=== PATIENT | male | born 1960 | race Caucasian/White ===

== ENCOUNTER 2024-06-16 08:50 | Emergency (ER) | payer BC ==
[~2024-06-16] VITALS: Ht 167.6 cm; Wt 99.8 kg
[2024-06-16] MEDS ORDERED: ATOR40TA PO (09:04)
[2024-06-16] MEDS ORDERED: BUPR-96 PO (09:04)
[2024-06-16] MEDS ORDERED: ALLO100T PO (09:04)
[2024-06-16] MEDS ORDERED: ALFU10TA10 PO (09:04)
[2024-06-16 10:00] LABS: *BILIRUBIN,URIN 2+ (NEGATIVE); *BLOOD, URINE NEGATIVE (NEGATIVE); *CLARITY,URINE CLEAR (CLEAR); *COLOR,URINE YELLOW (YELLOW); *KETONES,URINE TRACE (NEGATIVE); *PROTEIN,URINE 1+ (NEGATIVE); LEUKOCYTE ESTERASE ,URINE NEGATIVE (NEGATIVE); NITRITE, URINE NEGATIVE (NEGATIVE); PH,URINE 5.5 (5.0-8.0); UGLUCOSE NEGATIVE (NEGATIVE)
[2024-06-16 10:09] LABS: CALCIUM 8.9 mg/dL (8.5-10.1); CARBON DIOXIDE 25 mmol/L (21-32); CHLORIDE 102 mmol/L (98-107); CREATININE 1.7 mg/dL (0.6-1.3); GLUCOSE 129 mg/dL (74-106); POTASSIUM 4.7 mmol/L (3.5-5.1); SODIUM SERUM 134 mmol/L (136-145); UREA NITROGEN, BLOOD 25 mg/dL (7-18)
[2024-06-16 10:11] LABS: RBC,URINE NONE SEEN /HPF (0-3); URINE AMORPHOUS URATE FEW /HPF; WBC,URINE 0-3 /HPF (0-3)
[2024-06-16 10:16] LABS: ALANINE AMINOTRANSFERASE 317 U/L (16-63); ALBUMIN 3.9 g/dL (3.4-5.0); ALKALINE PHOSPHATASE 135 U/L (50-136); ASPARTATE AMINOTRANSFERASE 235 U/L (15-37); BILIRUBIN,DIRECT 2.1 mg/dL (0.0-0.2); BILIRUBIN,TOTAL 3.6 mg/dL (0.2-1.0); TOTAL PROTEIN, SERUM 6.9 g/dL (6.4-8.2)
[2024-06-16 10:17] LABS: BASOPHILS % (AUTO) 0.1 % (0.0-2.0); EOSINOPHILS % (AUTO) 0.1 % (0.0-7.0); HEMOGLOBIN 16.8 g/dL (12.5-16.3); LYMPHOCYTES # (AUTO) 0.6 K/uL (0.8-4.8); LYMPHOCYTES % (AUTO) 6.7 % (20.5-51.5); MEAN CORPUSCULAR HEMOGLOBIN 31.7 uug (23.8-33.4); MEAN CORPUSCULAR HGB CONC 34 g/dL (32.5-36.3); MEAN CORPUSCULAR VOLUME 94.6 fL (73.0-96.2); MONOCYTES # (AUTO) 0.3 K/uL (0.1-1.30); NEUTROPHILS # (AUTO) 7.7 K/uL (1.8-8.9); NEUTROPHILS % (AUTO) 90.1 % (38.5-71.5); PLATELET COUNT (AUTO) 178 K/uL (152-348); RED BLOOD CELL COUNT(AUTO) 5.29 MIL/uL (4.06-5.63); RED CELL DISTRIBUTION WIDTH 14.9 % (12.1-16.2); WHITE BLOOD COUNT (AUTO) 8.5 K/uL (3.6-10.2)
[2024-06-16 10:18] LABS: DIFFERENTIAL COMMENT 1
[2024-06-16 10:53] LABS: LIPASE > 375 U/L (16-77)
[2024-06-16 12:21] VITALS: BP 122/70; O2SAT 98
== END 2024-06-16 12:08 | disposition home or self-care (01) ==
LOC: ER 08:50
DX: K29.80 Duodenitis without bleeding (principal); K83.1 Obstruction of bile duct; K85.90 Acute pancreatitis without necrosis or infection, unspecified; N18.9 Chronic kidney disease, unspecified; E78.00 Pure hypercholesterolemia, unspecified; Z79.899 Other long term (current) drug therapy
CPT/HCPCS: 36415; 71045; 83690; 84484; 85025; 85730; 93005; A4606; A4663